=== PATIENT | male | born 1950 | race Caucasian/White ===

== ENCOUNTER 2022-11-23 12:25 | Inpatient (IN) | payer MEDICARE, OTHER ==
[~2022-11-23] VITALS: Ht 182.9 cm; Wt 151.9 kg
[2022-11-23 14:40] LABS: Source, Urine Clean Catch
[2022-11-23] MEDS ORDERED: FAMO20 PO (14:45)
[2022-11-23] MEDS ORDERED: ELIQUIS5 M3 PO (14:45)
[2022-11-23] MEDS ORDERED: AMIODARONE HCL100 M5 PO (14:45)
[2022-11-23] MEDS ORDERED: FUROSEMIDE40 MG PO (14:46)
[2022-11-23] MEDS ORDERED: JARDIANCE10 MG PO (14:46)
[2022-11-23] MEDS ORDERED: ROSUVASTATIN CA20 MG PO (14:46)
[2022-11-23] MEDS ORDERED: METOPROLOL SUCC25 MG PO (14:46)
[2022-11-23] MEDS ORDERED: SPIRONOLACTONE25 MG PO (14:46)
[2022-11-23] MEDS ORDERED: Prinivil10 MG PO (14:46)
[2022-11-23] MEDS ORDERED: TAMSULOSIN HCL0.4 M1 PO (14:47)
[2022-11-23] MEDS ORDERED: ACET500 PO (14:47)
[2022-11-23 14:49] LABS: Bilirubin, Urine Neg (Neg); Blood, Urine 4+ (Neg); Glucose Qualitative, Urine 4+ (Neg); Ketones, Urine Neg (Neg); Leukocyte Esterase, Urine 3+ (Neg); Nitrite, Urine Neg (Neg); Protein, Urine Neg (Neg); Urobilinogen, Urine NORM (Normal)
[2022-11-23 14:56] LABS: Appearance, Urine Hazy (Clear); Color, Urine Pale Yellow (P-Yellow)
[2022-11-23 14:58] LABS: Bacteria Mod /hpf; Squamous Epithelial Cells Not Seen /hpf (Few); White Blood Cells, Urine 25-50 /hpf (0-5)
[2022-11-23 16:05] LABS: International Normalized Ratio 1.04; Prothrombin Time Results 10.9 Sec (9.7-11.5)
[2022-11-23 19:18] VITALS: BP 146/94
[2022-11-24 04:44] VITALS: BP 149/84
[2022-11-24 04:45] LABS: BASOPHILS ABSOLUTE AUTO 0.07 K/mm3 (0.00-0.23); BASOPHILS PERCENT AUTO 0 % (0-2); EOSINOPHILS ABSOLUTE AUTO 0.08 K/mm3 (0.00-0.68); EOSINOPHILS PERCENT AUTO 1 % (0-6); Hemoglobin 14.1 g/dL (13.5-17.5); IMMATURE GRAN ABSOLUTE AUTO 0.13 K/mm3 (0.00-0.10); IMMATURE GRAN PERCENT AUTO 1 % (0-1); LYMPHOCYTES PERCENT AUTO 13 % (21-46); MONOCYTES ABSOLUTE AUTO 1.76 K/mm3 (0.16-1.47); MONOCYTES PERCENT AUTO 11 % (4-13); Mean Corpuscular HGB Conc 33.6 g/dL (31.5-36.5); Mean Corpuscular Volume 92 fL (80-100); Mean Platelet Volume 10.4 fL (9.1-12.4); NEUTROPHILS ABSOLUTE AUTO 12.67 K/mm3 (1.96-9.15); NEUTROPHILS PERCENT AUTO 75 % (41-73); Platelet Count 185 K/mm3 (150-400); RDW Standard Deviation 47.8 fL (35.1-46.3); Red Blood Cell Count 4.55 M/mm3 (4.30-5.90); White Blood Cell Count 16.81 K/mm3 (4.00-11.30)
[2022-11-24 05:52] LABS: Albumin/Globulin Ratio 0.9 (0.8-1.8); Bilirubin, Total 0.7 mg/dL (0.1-1.0); Bun/Creatinine Ratio 21.2 (12.0-20.0); Calcium, Blood 8.7 mg/dL (8.5-10.1); Creatinine, Blood 1.13 mg/dL (0.60-1.20); Globulin, Blood 3.2 g/dL (2.2-4.0); Potassium, Blood 4.3 mmol/L (3.5-5.5); Total Protein, Blood 6.2 g/dL (6.4-8.2)
--- NOTE | 2022-11-24 06:38 | NUR ---
SHIFT SUMMARY PRN NORCO GIVEN X1 THIS SHIFT FOR ARTHRITIS PAIN WITH POSITIVE EFFECT. CPAP ORDERED AND PLACED ON PT. Q1H FIRE SAFETY CHECKS COMPLETED, NO IGNITION SOURES
[2022-11-24 07:43] VITALS: BP 161/93
--- NOTE | 2022-11-24 15:42 | NUR ---
SHIFT SUMMARY PATIENT IS ALERT AND ORIENTED. PATIENT HAS HAD NO ACUTE EVENTS THIS SHIFT. VITAL SIGNS REVIEWED. PATIENT HAS BEEN IND IN ROOM. PATIENT USES URINAL IND. PATIENT HAS HAD A LARGE BM THIS SHIFT. PATIENT HAS NOT COMPLAINED OF PAIN, NAUSEA, SOB OR VOMITTING THIS SHIFT. PATIENT HAS RECEIVED ABX INFUSIONS FOR PYLONEPHRITIS. BED IN LOCKED AND LOWEST POSITION. CALL LIGHT IN PLACE. WILL MONITOR UNTIL SHIFT CHANGE.
[2022-11-24 16:02] VITALS: BP 133/77
[2022-11-24 16:23] LABS: Bun/Creatinine Ratio 18.7 (12.0-20.0); Calcium, Blood 8.8 mg/dL (8.5-10.1); Creatinine, Blood 1.07 mg/dL (0.60-1.20); Potassium, Blood 4.3 mmol/L (3.5-5.5)
[2022-11-24 20:18] VITALS: BP 151/81
[2022-11-25 03:59] VITALS: BP 154/94
--- NOTE | 2022-11-25 04:27 | NUR ---
SHIFT SUMMARY. SHIFT HAS BEEN LARGELY UNREMARKABLE. PT HAD A VERY MILD ELEVATED TEMPERATURE EARLY IN SHIFT THAT WAS ALLEVIATED WITH PRN TYLENOL. VITALS REMAIN STABLE AND WNL THIS MORNING. PT HAS SLEPT THROUGH MUCH OF SHIFT. CALLS APPROPRIATELY. AOX4, PLEASANT, COOPERATIVE WITH CARE. BED LOCKED IN LOCKED IN LOWEST POSITION. CALL LIGHT LEFT WITHIN REACH.
[2022-11-25 04:56] LABS: BASOPHILS ABSOLUTE AUTO 0.07 K/mm3 (0.00-0.23); BASOPHILS PERCENT AUTO 1 % (0-2); EOSINOPHILS ABSOLUTE AUTO 0.24 K/mm3 (0.00-0.68); EOSINOPHILS PERCENT AUTO 2 % (0-6); Hematocrit 42.9 % (37.0-53.0); Hemoglobin 14.2 g/dL (13.5-17.5); IMMATURE GRAN ABSOLUTE AUTO 0.11 K/mm3 (0.00-0.10); IMMATURE GRAN PERCENT AUTO 1 % (0-1); LYMPHOCYTES ABSOLUTE AUTO 2.68 K/mm3 (0.84-5.20); LYMPHOCYTES PERCENT AUTO 22 % (21-46); MONOCYTES ABSOLUTE AUTO 1.03 K/mm3 (0.16-1.47); MONOCYTES PERCENT AUTO 8 % (4-13); Mean Corpuscular HGB 30.9 pg (26.0-34.0); Mean Corpuscular HGB Conc 33.1 g/dL (31.5-36.5); Mean Corpuscular Volume 93 fL (80-100); Mean Platelet Volume 10.9 fL (9.1-12.4); NEUTROPHILS ABSOLUTE AUTO 8.24 K/mm3 (1.96-9.15); NEUTROPHILS PERCENT AUTO 67 % (41-73); Platelet Count 184 K/mm3 (150-400); RDW Coefficient Variation 14.1 % (11.7-14.2); RDW Standard Deviation 48.3 fL (35.1-46.3); White Blood Cell Count 12.37 K/mm3 (4.00-11.30)
[2022-11-25 05:20] LABS: Albumin, Blood 3.1 g/dL (3.4-5.0); Albumin/Globulin Ratio 0.9 (0.8-1.8); Bilirubin, Total 0.5 mg/dL (0.1-1.0); Bun/Creatinine Ratio 18.2 (12.0-20.0); Calcium, Blood 9.2 mg/dL (8.5-10.1); Creatinine, Blood 0.99 mg/dL (0.60-1.20); Globulin, Blood 3.6 g/dL (2.2-4.0); Potassium, Blood 4.1 mmol/L (3.5-5.5); Total Protein, Blood 6.7 g/dL (6.4-8.2)
[2022-11-25 07:04] VITALS: BP 135/86
[2022-11-25] MEDS ORDERED: Acetaminophen650 M1 PO (13:09)
[2022-11-25] MEDS ORDERED: CEFP200 PO (13:10)
[2022-11-25] MEDS ORDERED: VISBIOME 112.51 EACH PO (13:10)
--- NOTE | 2022-11-25 14:15 | NUR ---
SHIFT SUMMARY AND DISCHARGE PATIENT DISCHARGED. PATIENT ALERT AND ORIENTED. PATIENT ABLE TO AMBULATE AROUND IN ROOM. PATIENT EAGER TO GET DISCHARGED. DISCHARGE INSTRUCTIONS REVIEWED WITH PATIENT. RX FAXED TO [facility]. IV DC'D WITH CATHETER INTACT. BELONGINGS SENT HOME WITH PATIENT AND ROOM CHECK DONE PRIOR TO DISCHARGE. PATIENT WAS EDUCATED AT START OF SHIFT RELATED TO FIRE SAFETY AND NOT TO USE FLAMMABLE ITEMS IN THE HOSPITAL. PATIENT ROUNDED HOURLY AND OBSERVED NOT USING ANY FLAMMABLE ITEMS.
== END 2022-11-25 14:45 | disposition home or self-care (01) | DRG 871 ==
LOC: ER 12:25 → MEDS 15:18 → ENPENDDIS 11-25 11:58 → MEDS 11-25 14:45
PROVIDERS: Emergency Medicine; Family Medicine; Student in an Organized Health Care Education/Training Program; ADMIT Hospitalist
DX: A41.9 Sepsis, unspecified organism (principal); R65.21 Severe sepsis with septic shock; N39.0 Urinary tract infection, site not specified; N17.9 Acute kidney failure, unspecified; I50.32 Chronic diastolic (congestive) heart failure; N10 Acute pyelonephritis; I11.0 Hypertensive heart disease with heart failure; I48.0 Paroxysmal atrial fibrillation; N40.1 Benign prostatic hyperplasia with lower urinary tract symptoms; R39.14 Feeling of incomplete bladder emptying; R39.15 Urgency of urination; Z66 Do not resuscitate; Z79.01 Long term (current) use of anticoagulants; Z79.811 Long term (current) use of aromatase inhibitors; Z79.899 Other long term (current) drug therapy
CPT/HCPCS: 36415; 71045; 76770; 80048; 80053; 81001; 85025; 85379; 85610; 85730; 87086; 93005; 93010; 94660; 94762; 96361; 96365; 96376; 99285-25; A9270; G0378; J0696; J7030

== ENCOUNTER → 2022-11-23 | Outpatient (CLI) | payer MEDICARE, OTHER ==
[~2022-11-23] MED LIST: ACET500 PO; AMIODARONE HCL100 M5 PO; Acetaminophen650 M1 PO; CEFP200 PO; ELIQUIS5 M3 PO; FAMO20 PO; FUROSEMIDE40 MG PO; JARDIANCE10 MG PO; METOPROLOL SUCC25 MG PO; Prinivil10 MG PO; ROSUVASTATIN CA20 MG PO; SPIRONOLACTONE25 MG PO; TAMSULOSIN HCL0.4 M1 PO; VISBIOME 112.51 EACH PO
[2022-11-23 12:14] LABS: BASOPHILS ABSOLUTE AUTO 0.08 K/mm3 (0.00-0.23); BASOPHILS PERCENT AUTO 0 % (0-2); EOSINOPHILS ABSOLUTE AUTO 0.03 K/mm3 (0.00-0.68); EOSINOPHILS PERCENT AUTO 0 % (0-6); Hematocrit 50.8 % (37.0-53.0); Hemoglobin 17.4 g/dL (13.5-17.5); IMMATURE GRAN ABSOLUTE AUTO 0.21 K/mm3 (0.00-0.10); IMMATURE GRAN PERCENT AUTO 1 % (0-1); LYMPHOCYTES ABSOLUTE AUTO 0.72 K/mm3 (0.84-5.20); LYMPHOCYTES PERCENT AUTO 4 % (21-46); MONOCYTES ABSOLUTE AUTO 1.33 K/mm3 (0.16-1.47); MONOCYTES PERCENT AUTO 7 % (4-13); Mean Corpuscular HGB 31.6 pg (26.0-34.0); Mean Corpuscular HGB Conc 34.3 g/dL (31.5-36.5); Mean Corpuscular Volume 92 fL (80-100); NEUTROPHILS ABSOLUTE AUTO 17.48 K/mm3 (1.96-9.15); NEUTROPHILS PERCENT AUTO 88 % (41-73); Platelet Count 206 K/mm3 (150-400); RDW Coefficient Variation 13.6 % (11.7-14.2); RDW Standard Deviation 46.5 fL (35.1-46.3); Red Blood Cell Count 5.51 M/mm3 (4.30-5.90); White Blood Cell Count 19.85 K/mm3 (4.00-11.30)
[2022-11-23 12:26] LABS: Albumin, Blood 4.2 g/dL (3.4-5.0); Bilirubin, Total 0.9 mg/dL (0.1-1.0); Bun/Creatinine Ratio 20.4 (12.0-20.0); Calcium, Blood 9.9 mg/dL (8.5-10.1); Creatinine, Blood 1.52 mg/dL (0.60-1.20); Globulin, Blood 4.2 g/dL (2.2-4.0); Potassium, Blood 5.2 mmol/L (3.5-5.5); Total Protein, Blood 8.4 g/dL (6.4-8.2)
== END ==
LOC: LAB 12:05 → LAB SHORT 12:05
PROVIDERS: Family Medicine
DX: R07.9 Chest pain, unspecified (principal); R50.9 Fever, unspecified
CPT/HCPCS: 80053; 83605; 84484; 85025